=== PATIENT | female | born 1975 | race Caucasian/White ===

== ENCOUNTER 2019-05-02 08:55 | Emergency (ER) | payer SELFPAY ==
[~2019-05-02] VITALS: Ht 170.2 cm; Wt 65.6 kg
[2019-05-02] MEDS ORDERED: ALBUTEROL/IPRATROPIUM 2.5MG/0.5MG, 3 ML NPPB ONE (09:30)
[2019-05-02] MEDS ORDERED: LITH300C PO (09:40)
[2019-05-02] MEDS ORDERED: PRAZ1CAP2 PO (09:40)
[2019-05-02] MEDS ORDERED: CETI10TA32 PO (09:40)
[2019-05-02] MEDS ORDERED: FLUT9.9S NAS (09:40)
[2019-05-02] MEDS ORDERED: CYCL5TAB PO (09:40)
[2019-05-02] MEDS ORDERED: MOME13HF INH (09:40)
[2019-05-02] MEDS ORDERED: DOXYCYCLINE 100MG TABLET ONE (09:51)
[2019-05-02] MEDS ORDERED: ALBUTEROL/IPRATROPIUM 2.5MG/0.5MG, 3 ML ONE (09:56)
[2019-05-02 09:58] LABS: BASOPHILS # (AUTO) 0.02 x10^3/uL (0-0.1); BASOPHILS % (AUTO) 0 % (0-1); EOSINOPHILS # (AUTO) 0.06 x10^3/uL (0-0.4); EOSINOPHILS % (AUTO) 1 % (1-7); LYMPHOCYTES # (AUTO) 0.95 x10^3/uL (1-3.4); LYMPHOCYTES % (AUTO) 14 % (22-44); MD NO; MEAN CORPUSCULAR HEMOGLOBIN 32.2 pg (27.0-34.8); MEAN CORPUSCULAR HGB CONC 32.6 g/dL (32.4-35.8); MEAN PLATELET VOLUME 8.1 fL (7.4-10.4); MONOCYTES # (AUTO) 0.46 x10^3/uL (0.2-0.8); MONOCYTES % (AUTO) 7 % (2-9); NEUTROPHILS # (AUTO) 5.21 x10^3/uL (1.8-6.8); NEUTROPHILS % (AUTO) 78 % (42-75); PLATELET COUNT 177 x10^3/uL (130-400); RED BLOOD COUNT 3.87 x10^6/uL (3.82-5.3); RED CELL DISTRIBUTION WIDTH 13.6 % (9.6-15.2)
[2019-05-02] MEDS ORDERED: DOXYCYCLINE 100MG TABLET PO ONE (10:00)
[2019-05-02 10:02] LABS: ALBUMIN 3.3 g/dL (3.4-5.0); ANION GAP 7 mmol/L (5-15); CALCIUM 8.3 mg/dL (8.5-10.1); CHLORIDE 112 mmol/L (98-107)
[2019-05-02 10:06] LABS: ALANINE AMINOTRANSFERASE 18 U/L (12-78); ALKALINE PHOSPHATASE 91 U/L (45-117); BILIRUBIN,TOTAL 0.5 mg/dL (0.2-1.0); CREATININE 0.78 mg/dL (0.55-1.02); TOTAL PROTEIN 6.7 g/dL (6.4-8.2)
[2019-05-02 10:27] VITALS: BP 106/70
== END 2019-05-02 10:54 | disposition home or self-care (01) ==
LOC: ED 10:48
DX: J12.9 Viral pneumonia, unspecified (principal); J15.9 Unspecified bacterial pneumonia; F17.210 Nicotine dependence, cigarettes, uncomplicated; J45.909 Unspecified asthma, uncomplicated; F31.9 Bipolar disorder, unspecified; F41.9 Anxiety disorder, unspecified
CPT/HCPCS: 36415; 71045; 80053; 85025; 93005; 94640; 99284; J7512; J7620

== ENCOUNTER 2019-05-13 02:09 | Emergency (ER) | payer SELFPAY ==
[~2019-05-13] VITALS: Ht 170.2 cm; Wt 66.5 kg
[~2019-05-13 02:09] MED LIST: CETI10TA32 PO; CYCL5TAB PO; FLUT9.9S NAS; LITH300C PO; MOME13HF INH; PRAZ1CAP2 PO
[2019-05-13 02:12] VITALS: BP 144/98
--- NOTE | 2019-05-13 02:23 | NUR ---
LEFT SHOULDER PAIN, LEFT WRIST PAIN, GLF TODAY.
[2019-05-13] MEDS ORDERED: HYDROcodone/APAP 5/325 TABLET ONE (02:53)
[2019-05-13] MEDS ORDERED: HYDROcodone/APAP 5/325 TABLET PO ONE (03:00)
--- NOTE | 2019-05-13 04:51 | NUR ---
Patient/Caregiver given discharge instructions and they have confirmed that they understand the instructions. Patient ambulatory with steady gait.
== END 2019-05-13 04:52 | disposition home or self-care (01) ==
LOC: ED 04:43
DX: M25.532 Pain in left wrist (principal); Z88.8 Allergy status to other drugs, medicaments and biological substances; W01.0XXA Fall on same level from slipping, tripping and stumbling without subsequent striking against object, initial encounter; Y93.89 Activity, other specified; Y92.89 Other specified places as the place of occurrence of the external cause; Y99.8 Other external cause status
CPT/HCPCS: 29125; 99283